=== PATIENT | female | born 1980 | race Caucasian/White ===

== ENCOUNTER 2020-05-05 14:39 | Outpatient (CLI) | payer MEDICAID ==
[~2020-05-05] VITALS: Ht 167.6 cm; Wt 84.8 kg
[2020-05-05] MEDS ORDERED: PANT-47 PO (15:37)
[2020-05-05] MEDS ORDERED: INSU100I31 SQ (15:37)
[2020-05-05] MEDS ORDERED: METF500T PO (15:37)
[2020-05-05] MEDS ORDERED: GABA300C PO (15:37)
[2020-05-05 15:53] LABS: BASOPHILS # (AUTO) 0.1 X10'3 (0-0.2); BASOPHILS % (AUTO) 0.7 % (0-1); EOSINOPHILS # (AUTO) 0.3 X10'3 (0-0.9); EOSINOPHILS % (AUTO) 2.2 % (0-6); LYMPHOCYTES # (AUTO) 3.4 X10'3 (1.1-4.8); LYMPHOCYTES % (AUTO) 29.3 % (21-51); MEAN CORPUSCULAR HEMOGLOBIN 28.6 PG (27.0-31.0); MEAN PLATELET VOLUME 8.6 FL (7.4-10.4); MONOCYTES # (AUTO) 0.6 X10'3 (0-0.9); MONOCYTES % (AUTO) 5.3 % (2-12); NEUTROPHILS # (AUTO) 7.3 X10'3 (1.8-7.7); NEUTROPHILS % (AUTO) 62.5 % (42-75); PRE OP HEMATOCRIT 47.5 % (35.0-45.0); PRE OP HEMOGLOBIN 16.1 g/dL (12.0-16.0); PRE OP PLATELET COUNT 296 X10'3 (140-440); RED BLOOD COUNT 5.65 X10'6 (4.20-5.60); RED CELL DISTRIBUTION WIDTH 14.2 % (11.5-14.5)
[2020-05-05 16:16] LABS: HEMOGLOBIN A1C 9.7 % (4.5-6.2)
[2020-05-05 16:17] LABS: ALBUMIN 3.5 G/DL (3.4-5.0); ALBUMIN/GLOBULIN RATIO 0.8 (1.1-1.5); ALKALINE PHOSPHATASE 95 IU/L (46-116); BLOOD UREA NITROGEN 8 MG/DL (7-18); CALCIUM 8.7 MG/DL (8.5-10.1); CHLORIDE 98 MMOL/L (99-107); CREATININE 0.73 MG/DL (0.40-0.90); HCG SERUM QL NEGATIVE; PRE OP ALT 7 U/L (30-65); PRE OP ANION GAP 9 (8-16); PRE OP AST 10 U/L (10-37); PRE OP BILIRUB, TOTAL 0.3 MG/DL (0.0-1.0); PRE OP SODIUM 133 MMOL/L (135-145); TOTAL PROTEIN 7.9 G/DL (6.4-8.2); eGFR 89 ML/MIN
[2020-05-05 16:24] LABS: PRE OP GLUCOSE 334 MG/DL (70-104)
[2020-05-13] MEDS ORDERED: ringers solution, lacted 1,000 ML IV SCH (05:00)
[2020-05-13] MEDS ORDERED: vancomycin 1,500 MG in NS 300ml IV soln IV ONE (05:30)
[2020-05-13] MEDS ORDERED: acetaminophen 1,000mg/100ml IV 100 ML IV ONE (05:30)
[2020-05-13] MEDS ORDERED: oxyCODONE SR 10mg (sust. release) tab -2 tabs (20mg) PO ONE (05:30)
[2020-05-13] MEDS ORDERED: famotidine 20mg tablet PO ONE (05:30)
[2020-05-13] MEDS ORDERED: gabapentin 300mg capsule PO ONE (05:30)
[2020-05-13] MEDS ORDERED: metoclopramide 5 mg/ml inj IV ONE (05:30)
[2020-05-13] MEDS ORDERED: acetaminophen 325mg tablet PO ONE (05:30)
[2020-05-13] MEDS ORDERED: celeCOXIB 100mg capsule PO ONE (05:30)
[2020-05-13] MEDS ORDERED: duloxetine 20mg capsule.DR PO ONE (05:30)
[2020-05-13] MEDS ORDERED: cefazolin/dext.iso 2gm/50ml 50 ML IV ONE (05:30)
[2020-05-13] MEDS ORDERED: tranexamic acid inj. 1,000 MG in normal saline 100 ML IV ONE (05:30)
[2020-05-13] MEDS ORDERED: ascorbic acid 500mg tablet PO ONE (05:30)
== END 2020-05-05 23:59 | disposition home or self-care (01) ==
LOC: PRE-OP 14:39 → EDSTATUS 05-13 12:15
PROVIDERS: ATTEND Orthopaedic Surgery
DX: Z01.812 Encounter for preprocedural laboratory examination (principal); S83.242D Other tear of medial meniscus, current injury, left knee, subsequent encounter; M17.0 Bilateral primary osteoarthritis of knee; M79.2 Neuralgia and neuritis, unspecified; E11.51 Type 2 diabetes mellitus with diabetic peripheral angiopathy without gangrene; K21.9 Gastro-esophageal reflux disease without esophagitis; F17.228 Nicotine dependence, chewing tobacco, with other nicotine-induced disorders; E78.5 Hyperlipidemia, unspecified; I10 Essential (primary) hypertension; E66.8 Other obesity; X58.XXXD Exposure to other specified factors, subsequent encounter; Z20.828 Contact with and (suspected) exposure to other viral communicable diseases; Z91.048 Other nonmedicinal substance allergy status
CPT/HCPCS: 36415; 80053; 83036; 84703; 85025; 87635; 93005